=== PATIENT | female | born 1955 | race Caucasian/White ===

== ENCOUNTER 2017-11-05 20:25 | Inpatient (IN) | payer OTHER ==
[~2017-11-05] VITALS: Ht 162.6 cm; Wt 80.7 kg
--- NOTE | 2017-11-05 20:27 | NUR ---
PT TO ER BED 7. PT BIB [facility] C/O HEADACHE, HIGH B/P, AND "NOT FEELING WELL" X 1 DAY. PT PLACED IN GOWN AND ON AMMUNITION AND EXPLOSIVES HANDLER. VSS/RESP EVEN UNLABORED/NAD NOTED/SKIN WARM AND DRY/DENIES N-V-D/AFEBRILE/AOX4. AWAITING MD MCHUGH.
--- NOTE | 2017-11-05 20:42 | NUR ---
EMT AT BEDSIDE FOR EKG.
[2017-11-05] MEDS ORDERED: LABETALOL HCL IV 100MG VIAL ONE ×2 (21:10→21:16)
[2017-11-05] MEDS ORDERED: ASPIRIN 325 MG TABLET ONE (21:11)
[2017-11-05] MEDS ORDERED: ONDANSETRON HCL/PF 4 MG/2 ML VIAL ONE (21:11)
--- NOTE | 2017-11-05 21:25 | NUR ---
18G IV X 1 ATTEMPT TO R AC USING ASEPTIC TECH, BLOOD HANDED OVER TO THE LAB AT THE BEDSIDE. IV FLUSHES EASILY WITH NS, NO S/S INFILTRATION.
[2017-11-05] MEDS ORDERED: IV NS 0.9% 1,000 ML BAG IV ONE (21:30)
[2017-11-05] MEDS ORDERED: ONDANSETRON HCL/PF 4 MG/2 ML VIAL IVP ONE (21:30)
[2017-11-05] MEDS ORDERED: LABETALOL 20 MG/4 ML VIAL IV ONE (21:30)
[2017-11-05] MEDS ORDERED: ASPIRIN 325 MG TABLET PO ONE (21:30)
[2017-11-05 21:31] LABS: BASOPHILS # (AUTO) 0.1 /CMM (0.0-0.2); BASOPHILS % (AUTO) 0.8 % (0.0-2.0); EOSINOPHILS # (AUTO) 0.1 /CMM (0.0-0.7); EOSINOPHILS % (AUTO) 1.2 % (0.0-6.0); HEMATOCRIT 39 % (33-45); HEMOGLOBIN 13.3 g/dL (11.5-14.8); LYMPHOCYTES # (AUTO) 1.9 /CMM (0.8-4.8); LYMPHOCYTES % (AUTO) 30.4 % (20.0-44.0); MEAN CORPUSCULAR HEMOGLOBIN 31 PG (26.0-33.0); MEAN CORPUSCULAR HGB CONC 34 g/dl (31.0-36.0); MEAN CORPUSCULAR VOLUME 91 fL (82-100); MONOCYTES # (AUTO) 0.5 /CMM (0.1-1.30); MONOCYTES % (AUTO) 8.1 % (2.0-12.0); NEUTROPHILS # (AUTO) 3.7 /CMM (1.8-8.9); NEUTROPHILS % (AUTO) 59.5 % (43.0-81.0); PLATELET COUNT (AUTO) 216 /CMM (150-450); RDW COEFFICIENT OF VARIATION 12.8 (11.5-15.0); RED BLOOD CELL COUNT(AUTO) 4.32 MIL/uL (4.0-5.2); WHITE BLOOD COUNT (AUTO) 6.3 K/uL (4.3-11.0)
--- NOTE | 2017-11-05 21:37 | NUR ---
XRAY AT BEDSIDE.
[2017-11-05 21:46] LABS: CALCIUM, SERUM 8.9 mg/dL (8.5-10.1); CARBON DIOXIDE 30 mmol/L (21-32); CHLORIDE 102 mmol/L (98-107); CREATININE 0.8 mg/dL (0.6-1.3); GLUCOSE 99 mg/dL (74-106); INR 0.92 (0.85-1.15); POTASSIUM 3.5 mmol/L (3.5-5.1); SODIUM SERUM 136 mmol/L (136-145); UREA NITROGEN, BLOOD 9 mg/dL (7-18)
[2017-11-05] MEDS ORDERED: IOHEXOL-350 100 ML VIAL IV ONE (21:48)
[2017-11-05 21:53] LABS: ALANINE AMINOTRANSFERASE 17 U/L (12-78); ALBUMIN 3.9 g/dL (3.4-5.0); ALKALINE PHOSPHATASE 84 U/L (46-116); ASPARTATE AMINOTRANSFERASE 21 U/L (15-37); BILIRUBIN,DIRECT 0.1 mg/dL (0.0-0.2); BILIRUBIN,TOTAL 0.3 mg/dL (0.2-1.0); TOTAL PROTEIN, SERUM 7.8 g/dL (6.4-8.2)
[2017-11-05 21:58] LABS: TROPONIN I < 0.017 ng/mL (0.00-0.056)
--- NOTE | 2017-11-05 22:36 | NUR ---
PT TO CT VIA STRETCHER. VSS.
--- NOTE | 2017-11-05 22:49 | NUR ---
PT BACK FROM CT, VSS.
--- NOTE | 2017-11-05 23:44 | NUR ---
PT STATES SHE WILL HAVE SOMEONE BRING HER HOME MEDICATIONS TOMORROW.
--- NOTE | 2017-11-05 23:54 | NUR ---
REPORT CALLED TO JESSICA FONTENOT IN [facility].
[2017-11-06] VITALS (7 sets, daily range): BP systolic 138–156; BP diastolic 70–78
--- NOTE | 2017-11-06 00:07 | NUR ---
PT TRANSPORTED TO TELE 118 VIA STRETCHER ON DISULFURIZER TENDER WITH RN PER ACLS PROTOCOL. VSS.
--- NOTE | 2017-11-06 00:30 | NUR ---
RN INITIAL NOTES PT RECEIVED FROM ER, ADMITTED TO [facility] FOR CP/HEADACHE/NAUSEA. PT A &OX4, PT C/O OF HEADACHE TO THE LEFT SIDE OF HER HEAD AND STATES THAT SHE HAS METALLIC TASTE TO HER MOUTH. PT IS NPO. 20G IN HER R FA. PIC TAKEN OF ABD L BRUISING. PT ORIENTED TO ROOM, ALL SAFETY PRECAUTIONS ARE TAKEN. BED IN LOWEST LOCKED POSITION, CALL LIGHT WITH REACH. WILL CONT TO MONITOR.
[2017-11-06] MEDS ORDERED: ACETAMINOPHEN 650 MG/SUPP.RECT RC PRN (02:30)
[2017-11-06] MEDS ORDERED: ONDANSETRON HCL/PF 4 MG/2 ML VIAL IVP PRN (02:30)
[2017-11-06] MEDS ORDERED: Potassium Chloride 20 MEQ in IV D5/0.45 NACL 1,000 ML IV PRN (02:30)
[2017-11-06] MEDS ORDERED: ENALAPRILAT DIHYD. (2.5MG/ML) 1.25 MG/ML VIAL IV PRN (02:30)
[2017-11-06] MEDS ORDERED: LORAZEPAM INJ 2 MG/ML VIAL IV PRN (02:30)
[2017-11-06] MEDS ORDERED: MORPHINE SULFATE INJ 2 MG/ML DISP.SYRIN IV PRN (02:30)
--- NOTE | 2017-11-06 06:32 | NUR ---
RN CLOSING NOTES NO CHANGE IN PT CONDITION OVER SHIFT. PT WAS GIVEN PAIN MEDS FOR HEAD PAIN. IV FLUIDS INFUSING IN R FA. PT IS NPO. ALL MEDICATIONS GIVEN ORDERED. ALL LABS DRAWN. PT SR- 76 ON TELE MONITOR. ALL SAFETY PRECAUTION TAKEN. WILL ENDORSE TO AM RN.
[2017-11-06 06:44] LABS: BASOPHILS % (AUTO) 0.4 % (0.0-2.0); EOSINOPHILS # (AUTO) 0.1 /CMM (0.0-0.7); EOSINOPHILS % (AUTO) 1.1 % (0.0-6.0); HEMATOCRIT 33 % (33-45); HEMOGLOBIN 11.2 g/dL (11.5-14.8); LYMPHOCYTES # (AUTO) 2.4 /CMM (0.8-4.8); LYMPHOCYTES % (AUTO) 37.9 % (20.0-44.0); MEAN CORPUSCULAR HEMOGLOBIN 32 PG (26.0-33.0); MEAN CORPUSCULAR HGB CONC 34 g/dl (31.0-36.0); MEAN CORPUSCULAR VOLUME 92 fL (82-100); MONOCYTES # (AUTO) 0.5 /CMM (0.1-1.30); MONOCYTES % (AUTO) 8.7 % (2.0-12.0); NEUTROPHILS # (AUTO) 3.2 /CMM (1.8-8.9); NEUTROPHILS % (AUTO) 51.9 % (43.0-81.0); PLATELET COUNT (AUTO) 186 /CMM (150-450); RDW COEFFICIENT OF VARIATION 13.8 (11.5-15.0); RED BLOOD CELL COUNT(AUTO) 3.54 MIL/uL (4.0-5.2); WHITE BLOOD COUNT (AUTO) 6.2 K/uL (4.3-11.0)
[2017-11-06 07:02] LABS: ALANINE AMINOTRANSFERASE 19 U/L (12-78); ALKALINE PHOSPHATASE 61 U/L (46-116); ASPARTATE AMINOTRANSFERASE 19 U/L (15-37); B-TYPE NATRIURETIC PEPTIDE 808 PG/ML (0-125); BILIRUBIN,TOTAL 0.2 mg/dL (0.2-1.0); CARBON DIOXIDE 27 mmol/L (21-32); CHLORIDE 108 mmol/L (98-107); CHOLESTEROL 200 mg/dL (<200); CREATININE 0.8 mg/dL (0.6-1.3); GLUCOSE 102 mg/dL (74-106); HDL CHOLESTEROL 51 mg/dL (40-60); LDL 117 mg/dL (0-99); LIPASE 89 U/L (73-393); PHOSPHORUS 3.2 mg/dL (2.5-4.9); SODIUM SERUM 142 mmol/L (136-145); THYROID STIMULATING HORMONE 3.692 uIU/mL (0.358-3.74); TOTAL PROTEIN, SERUM 6.1 g/dL (6.4-8.2); TRIGLYCERIDES 182 mg/dL (30-150); UREA NITROGEN, BLOOD 7 mg/dL (7-18)
[2017-11-06 07:06] LABS: TROPONIN I < 0.017 ng/mL (0.00-0.056)
[2017-11-06] MEDS ORDERED: ENALAPRILAT INJ (1.25 MG/ML) 1.25 MG/ML VIAL IV PRN (07:30)
--- NOTE | 2017-11-06 07:30 | NUR ---
RN NOTES RECEIVED PATIENT IN BED ASLEEP WITH BREATHING NORMAL,EVEN AND UNLABORED. NO SOB NOTED. NO ACUTE DISTRESS NOTED. TELE MONITOR REVEALS SR, HR=80. BOWEL SOUND PRESENT. PULSES PRESENT. KEPT CLEAN, DRY AND COMFORTABLE. ALL NEEDS ATTENDED. SAFETY MEASURE OBSERVED. CALL LIGHT WITH IN REACH. WILL CONT TO MONITOR.
[2017-11-06] MEDS ORDERED: TAMO20TA4 PO (07:33)
[2017-11-06] MEDS ORDERED: MAGN400T26 PO (07:33)
[2017-11-06] MEDS ORDERED: VALS40TA4 PO (07:33)
[2017-11-06] MEDS ORDERED: ESCI10TA GT (07:33)
[2017-11-06] MEDS ORDERED: BUSP10TA35 PO (07:33)
[2017-11-06] MEDS ORDERED: GABA-534 PO (07:33)
[2017-11-06] MEDS: FAMOTIDINE/PF INJ 20 MG/2 ML VIAL IV SCH ×2 (08:43→21:29)
[2017-11-06] MEDS: METOPROLOL TARTRATE 25 MG TABLET PO SCH ×2 (08:44→21:31)
[2017-11-06] MEDS: VALSARTAN 80 MG TABLET PO SCH (11:22)
[2017-11-06] MEDS ORDERED: ACETAMINOPHEN 325 MG TABLET PO PRN (11:30)
[2017-11-06] MEDS ORDERED: METOCLOPRAMIDE HCL 10 MG/2 ML VIAL IV PRN (12:00)
[2017-11-06] MEDS ORDERED: PROMETHAZINE HCL 25 MG/ML AMPUL IV PRN ×3 (12:00→18:00)
--- NOTE | 2017-11-06 18:52 | NUR ---
RN NOTES PATIENT ENDORSED TO NEXT SHIFT IN STABLE CONDITION WITH BREATHING NORMAL, EVEN AND UNLABORED. NO SOB NOTED. NO ACUTE DISTRESS NOTED. KEPT CLEAN, DRY AND COMFORTABLE. ALL NEEDS ATTENDED. SAFETY MEASURE OBSERVED. CALL LIGHT WITH IN REACH. WILL CONT TO MONITOR.
--- NOTE | 2017-11-06 19:00 | NUR ---
MS RN NOTE: PATIENT RESTING IN BED, A/O X4, IN STABLE, NO ACUTE DISTRESS NOTED. BREATHING EVEN AND UNLABORED, NO SOB NOTED. BED LOCKED AND IN LOWEST POSITION, CALL LIGHT IN REACH. WILL CONTINUE TO MONITOR.
[2017-11-06] MEDS: TRAMADOL HCL 50 MG TABLET PO PRN (21:25)
--- NOTE | 2017-11-06 22:30 | NUR ---
PAGED DR. AUDIE DO. PT C/O THROBBING PAIN HEADACHE 8-10 PER PT TYLENOL DOESNT DO ANYTHING FOR HER RELAYED MESSAGE TO DR. BRONSON PER DR. BRONSON GIVE TORADOL 30 MG IV Q6 PRN SEVERE PAIN 8-10 READ BACK AND VERIFIED ORDERS NOTED AND CARRIED OUT
[2017-11-06] MEDS: KETOROLAC TROMETHAMINE INJ 30 MG/ML VIAL IV PRN (23:04)
--- NOTE | 2017-11-06 23:26 | NUR ---
MS RN NOTES DR. AUDIE SHAHID CALLED ORDERED PT HYDRALAZINE 25 MG IV Q6 PRN FOR SBP MORE THAN 150 TO ADD ALTERNATING DRUG FOR VASOTEC. READ BACK AND VERIFIED ORDERS NOTED AND CARRIED OUT
[2017-11-06] MEDS ORDERED: hydrALAZINE HCL IV 20 MG VIAL IV PRN (23:30)
[2017-11-07] VITALS: BP 135/67
[2017-11-07 04:00] VITALS: BP 142/70
[2017-11-07 04:38] VITALS: BP 142/70
[2017-11-07] MEDS: KETOROLAC TROMETHAMINE INJ 30 MG/ML VIAL IV PRN (05:15)
--- NOTE | 2017-11-07 06:27 | NUR ---
MS RN CLOSING NOTES PT TOLERATING ROOM AIR 02 SAT 98% PT ASLEEP AND EASILY AWAKEN, HOB ELEVATED AT ALL TIMES. NO S/S OF DISTRESS, STABLE CONDITION. RESPIRATION EVEN AND UNLABORED. GOOD SKIN CARE PROVIDED. ALL NURSING CARE RENDERED. NEEDS ATTENDED AND ANTICIPATED, KEPT CLEAN AND DRY AND COMFORTABLE, FREQUENT VISUAL CHECK DONE FOR SAFETY EVERY 2 HOURS. NO COMPALINS OF PAIN 0-10 ON LOW BED AT ALL TIMES TO ENSURE SAFETY. SAFE HAZARD FREE ENVIRONMENT PROVIDED. CALL LIGHT WITHIN EASY TO REACH. WILL ENDORSE NEXT SHIFT CONTINUITY OF CARE
--- NOTE | 2017-11-07 07:05 | NUR ---
RN INITIAL NOTE PATIENT RECEIVED IN BED, AWAKE, ALERT AND ORIENTED. ABLE TO MAKE NEEDS KNOWN. RESPIRATIONS ARE EVEN AND UNLABORED. SATING WELL ON ROOM AIR. NO S/S OF RESPIRATORY DISTRESS OR SOB. SKIN IS WARM AND DRY TO TOUCH. IV SITE FLUSHED, PATENT. SAFETY PRECAUTIONS IN PLACE, BED IN LOCKED, LOW POSITION WITH TWO SIDE RAILS UP. CALL LIGHT AND BELONGINGS WITHIN EASY REACH. WILL CONTINUE TO MONITOR.
[2017-11-07 07:21] LABS: BASOPHILS % (AUTO) 0.3 % (0.0-2.0); EOSINOPHILS # (AUTO) 0.1 /CMM (0.0-0.7); HEMATOCRIT 33 % (33-45); HEMOGLOBIN 11.4 g/dL (11.5-14.8); LYMPHOCYTES # (AUTO) 2.8 /CMM (0.8-4.8); LYMPHOCYTES % (AUTO) 40.8 % (20.0-44.0); MEAN CORPUSCULAR HEMOGLOBIN 32 PG (26.0-33.0); MEAN CORPUSCULAR HGB CONC 35 g/dl (31.0-36.0); MEAN CORPUSCULAR VOLUME 92 fL (82-100); MONOCYTES # (AUTO) 0.7 /CMM (0.1-1.30); MONOCYTES % (AUTO) 10.1 % (2.0-12.0); NEUTROPHILS # (AUTO) 3.3 /CMM (1.8-8.9); NEUTROPHILS % (AUTO) 47.8 % (43.0-81.0); PLATELET COUNT (AUTO) 169 /CMM (150-450); RDW COEFFICIENT OF VARIATION 13.9 (11.5-15.0); RED BLOOD CELL COUNT(AUTO) 3.56 MIL/uL (4.0-5.2); WHITE BLOOD COUNT (AUTO) 6.8 K/uL (4.3-11.0)
[2017-11-07 07:48] LABS: CALCIUM, SERUM 8.4 mg/dL (8.5-10.1); CREATININE 0.9 mg/dL (0.6-1.3); MAGNESIUM 2.2 mg/dL (1.8-2.4); PHOSPHORUS 3.6 mg/dL (2.5-4.9); POTASSIUM 3.9 mmol/L (3.5-5.1)
[2017-11-07 08:00] VITALS: BP 121/67
[2017-11-07] MEDS: TRAMADOL HCL 50 MG TABLET PO PRN (08:30)
[2017-11-07 08:31] VITALS: BP 121/68
[2017-11-07] MEDS: METOPROLOL TARTRATE 25 MG TABLET PO SCH (08:31)
[2017-11-07] MEDS: FAMOTIDINE/PF INJ 20 MG/2 ML VIAL IV SCH (08:31)
[2017-11-07] MEDS: VALSARTAN 80 MG TABLET PO SCH (08:31)
--- NOTE | 2017-11-07 11:45 | NUR ---
RN CLOSING NOTE TRANSFER OF CARE REPORT GIVEN TO [facility] NURSE. PATIENT MADE AWARE.
--- NOTE | 2017-11-07 11:50 | NUR ---
RN INITIAL NOTE: RECEIVED PATIENT FROM [facility] AT [facility]. PT ALERT, ORIENTED AND ABLE TO VERBALIZE HER NEEDS. PT DENIED PAIN AT THIS TIME. RESPIRATION EVEN AND UNLABORED. BED ALARM AND LOCKED AT ALL TIME. CALL LIGHT WITHIN REACH. NO IV PERIPHERAL NOTED AND PER JESSICA GAMING A MIDLINE WAS ORDERED FOR THE PATIENT. PATIENT AWARE.
--- NOTE | 2017-11-07 15:41 | NUR ---
PATIENT INSISTED TO GO HOME VERBALIZED " I FEEL BETTER NOW",DR. PATEL NOTIFIED PATIENT SIGNED AMA,NURSING SUP NOTIFIED AND INSTRUCTED PATIENT TO GO BACK TO ER IF SYMPTOMS RECUR.PT VSS BP 133/75,T 98.3,RR 20,HR 80,DENEIS ANY PAIN ,NAUSEA AND VOMITING.
--- NOTE | 2017-11-07 15:45 | NUR ---
RN M/S NOTE: PATIENT WAS IN A HURRY TO LEAVE THE HOSPITAL AND STRONGLY REFUSED TO HAVE A PICTURE TAKEN ON HER ABDOMINAL AREA.
--- NOTE | 2017-11-07 15:50 | NUR ---
RN M/S NOTE: PATIENT WENT HOME VIA AMA AND SIGNED THE AGAINST MEDICAL ADVICE FORM. PATIENT ON STABLE CONDITION AND BROUGHT ALL HER BELONGINGS W/ HER. GIVEN INSTRUCTION THAT IF THERE'S ANY CHANGES ON HER CONDITION GO BACK TO THE ER. BUT PER PT, SHE FELT OK AND DOES NOT THINK THAT SHE CAN STAY ANOTHER NIGHT AT THE HOSPITAL. PT UNDERSTOOD THAT SHE'S LIABLE FOR HER SELF ONCE SHE GETS OUT OF THE HOSPITAL.
[2017-11-07] MEDS ORDERED: DOXAZOSIN MESYLATE (1 MG) 1 MG TABLET PO SCH (22:00)
== END 2017-11-07 16:05 | disposition left against medical advice (07) | DRG 103 ==
LOC: ER 20:27 → TELE1 23:14 → MEDSG1 11-06 10:51
PROVIDERS: ADMIT Internal Medicine; ATTEND Internal Medicine
DX: G43.909 Migraine, unspecified, not intractable, without status migrainosus (principal); D68.59 Other primary thrombophilia; J84.10 Pulmonary fibrosis, unspecified; E44.0 Moderate protein-calorie malnutrition; J01.90 Acute sinusitis, unspecified; M79.7 Fibromyalgia; Z80.3 Family history of malignant neoplasm of breast; Z85.3 Personal history of malignant neoplasm of breast; Z87.891 Personal history of nicotine dependence; Z90.13 Acquired absence of bilateral breasts and nipples; I10 Essential (primary) hypertension; Z88.5 Allergy status to narcotic agent; R19.8 Other specified symptoms and signs involving the digestive system and abdomen; K44.9 Diaphragmatic hernia without obstruction or gangrene; E66.9 Obesity, unspecified; Z68.30 Body mass index [BMI] 30.0-30.9, adult; Z79.899 Other long term (current) drug therapy; B97.89 Other viral agents as the cause of diseases classified elsewhere
CPT/HCPCS: 36415; 70220-TC; 70450-TC; 71045-TC; 80048-TC; 80053-TC; 80061-TC; 80076-TC; 83690-TC; 83735-TC; 83880; 84100-TC; 84443-TC; 84484-TC; 85025-TC; 85730-TC; 87081-TC; 93307-TC; A4606; J1885; J2270; J2405; J2550; J3480; J3490; J7030; Z7610

== ENCOUNTER 2020-08-06 03:54 | Emergency (ER) | payer BC, OTHER ==
[~2020-08-06] VITALS: Ht 170.2 cm; Wt 77.1 kg
[~2020-08-06 03:54] MED LIST: BUSP10TA35 PO; ESCI10TA GT; GABA-534 PO; MAGN400T26 PO; TAMO20TA4 PO; VALS40TA4 PO
--- NOTE | 2020-08-06 04:01 | NUR ---
PT AAOX4. BIBRA60 FROM HOME S/P UNWITNESSED [employer] MRI TECHNOLOGIST. PER RA, BS 170 AND BP 74/34. UPON ASSESSMENT BP 112/58, RR EVEN AND UNLABORED, NO ACUTE DISTRESS NOTED. MRI TECHNOLOGIST GIVEN 200N/S. PT DENIES KO. AWAITING MD FOR EVAL AND ORDERS.
--- NOTE | 2020-08-06 04:05 | NUR ---
EMT AT BEDSIDE FOR EKG
--- NOTE | 2020-08-06 04:10 | NUR ---
FISHER OYSTER AT BEDSIDE FOR BLOOD WORK.
--- NOTE | 2020-08-06 04:11 | NUR ---
CALLED FOR COVID SWAB.
--- NOTE | 2020-08-06 04:25 | NUR ---
JAVIER ([facility]) CONTACT INFORMATION: [phone]
--- NOTE | 2020-08-06 04:28 | NUR ---
COVID SWABBED, SENT TO LAB
--- NOTE | 2020-08-06 04:29 | NUR ---
RADIOLOGY AT BEDSIDE
--- NOTE | 2020-08-06 04:32 | NUR ---
Pt to CT via larissa
[2020-08-06 04:34] LABS: BASOPHILS # (AUTO) 0.1 /CMM (0.0-0.2); BASOPHILS % (AUTO) 1.5 % (0.0-2.0); EOSINOPHILS % (AUTO) 1.5 % (0.0-6.0); HEMATOCRIT 34 % (33-45); HEMOGLOBIN 11.2 g/dL (11.5-14.8); LYMPHOCYTES # (AUTO) 2.8 /CMM (0.8-4.8); LYMPHOCYTES % (AUTO) 46.4 % (20.0-44.0); MEAN CORPUSCULAR HGB CONC 33 g/dl (31.0-36.0); MEAN CORPUSCULAR VOLUME 92 fL (82-100); MONOCYTES # (AUTO) 0.6 /CMM (0.1-1.30); MONOCYTES % (AUTO) 9.4 % (2.0-12.0); NEUTROPHILS # (AUTO) 2.5 /CMM (1.8-8.9); NEUTROPHILS % (AUTO) 41.2 % (43.0-81.0); PLATELET COUNT (AUTO) 211 /CMM (150-450); RED BLOOD CELL COUNT(AUTO) 3.72 MIL/uL (4.0-5.2); WHITE BLOOD COUNT (AUTO) 6.1 K/uL (4.3-11.0)
[2020-08-06 04:40] LABS: CARBON DIOXIDE 26 mmol/L (21-32); CHLORIDE 102 mmol/L (98-107); GLUCOSE 110 mg/dL (74-106); POTASSIUM 3.5 mmol/L (3.5-5.1); SODIUM SERUM 139 mmol/L (136-145); UREA NITROGEN, BLOOD 25 mg/dL (7-18)
[2020-08-06 04:46] LABS: ALANINE AMINOTRANSFERASE 14 U/L (12-78); ALKALINE PHOSPHATASE 107 U/L (46-116); ASPARTATE AMINOTRANSFERASE 21 U/L (15-37); BILIRUBIN,DIRECT 0.1 mg/dL (0.0-0.2); BILIRUBIN,TOTAL 0.2 mg/dL (0.2-1.0); TOTAL PROTEIN, SERUM 6.5 g/dL (6.4-8.2)
[2020-08-06] MEDS ORDERED: IV NS 0.9% 500 ML BAG IV ONE (05:00)
--- NOTE | 2020-08-06 05:35 | NUR ---
PT REMAINS IN BED, PROVIDED WITH MORE BLANKETS.
--- NOTE | 2020-08-06 05:49 | NUR ---
IV removed. Catheter intact and site benign. Pressure and 4x4 applied to site. No bleeding noted.
--- NOTE | 2020-08-06 05:59 | NUR ---
called son 2x, no answer.
--- NOTE | 2020-08-06 06:00 | NUR ---
Patient discharged to home in stable condition. Written and verbal after care instructions given. Patient verbalizes understanding of instruction. Awaiting for Son to miner pick pt.
--- NOTE | 2020-08-06 06:04 | NUR ---
CALLED SON, NO ANSWER. WILL TRY AGAIN SOON.
--- NOTE | 2020-08-06 06:11 | NUR ---
PT PLACED IN SUGAR TONG BY EMT.
--- NOTE | 2020-08-06 07:04 | NUR ---
SPOKE TO PT, SON IS ON HIS WAY.
[2020-08-06 07:39] VITALS: BP 121/60
== END 2020-08-06 07:40 | disposition home or self-care (01) ==
LOC: ER 03:56
DX: R55 Syncope and collapse (principal); S52.501A Unspecified fracture of the lower end of right radius, initial encounter for closed fracture; S52.691A Other fracture of lower end of right ulna, initial encounter for closed fracture; W18.30XA Fall on same level, unspecified, initial encounter; Y92.89 Other specified places as the place of occurrence of the external cause; R94.31 Abnormal electrocardiogram [ECG] [EKG]; Z20.828 Contact with and (suspected) exposure to other viral communicable diseases; E03.9 Hypothyroidism, unspecified; Z85.3 Personal history of malignant neoplasm of breast; M79.7 Fibromyalgia; F32.9 Major depressive disorder, single episode, unspecified; Z79.899 Other long term (current) drug therapy; Z88.5 Allergy status to narcotic agent; I10 Essential (primary) hypertension
CPT/HCPCS: 29125; 36415; 70450; 71045; 73110; 80048; 80076; 84484; 85025; 87426; 93005; 99285; C9803; J7040